=== PATIENT | female | born 1980 ===

== ENCOUNTER 2020-11-27 12:23 | Outpatient (CLI) | payer OTHER ==
[~2020-11-27 12:23] MED LIST: KETO10TA2 PO; ORPH100T PO
== END 2020-11-27 12:39 | disposition home or self-care (01) ==
LOC: RAD 12:23
PROVIDERS: ATTEND Physical Medicine & Rehabilitation
DX: M54.2 Cervicalgia (principal); M54.6 Pain in thoracic spine; M54.5 Low back pain